=== PATIENT | male | born 1990 | race Hispanic/Latino ===

== ENCOUNTER 2020-01-20 | Emergency (ER) | payer SELFPAY ==
[~2020-01-20] MED LIST: BACTRIM DS1 TAB OR; KEFLEX500 MG OR; NAPROXEN500 MG OR; NO CURRENT MEDS; TRAMADOL HCL50 MG OR; TYLENOL500 MG OR
[2020-01-20] MEDS ORDERED: AMOXICILLIN875 MG PO (20:57)
== END 2020-01-20 21:35 | disposition home or self-care (01) | DRG 864 ==
DX: R50.9 Fever, unspecified (principal); J02.9 Acute pharyngitis, unspecified
CPT/HCPCS: J0561

== ENCOUNTER 2020-08-22 20:40 | Emergency (ER) | payer SELFPAY ==
[~2020-08-22] VITALS: Ht 180.3 cm; Wt 95.4 kg
[~2020-08-22 20:40] MED LIST changes: +AMOXICILLIN875 MG PO
[2020-08-22] MEDS ORDERED: AMOX/K CLAV875 M1 PO (21:27)
[2020-08-22 22:45] VITALS: BP 146/77
== END 2020-08-22 22:45 | disposition home or self-care (01) | DRG 153 ==
LOC: ED 20:40
DX: J03.90 Acute tonsillitis, unspecified (principal)

== ENCOUNTER 2020-12-25 19:39 | Emergency (ER) | payer OTHER ==
[~2020-12-25] VITALS: Ht 180.3 cm; Wt 116.8 kg
[~2020-12-25 19:39] MED LIST changes: +AMOX/K CLAV875 M1 PO
[2020-12-25 20:16] LABS: HEMATOCRIT 43.8 % (39.0-50.0); HEMOGLOBIN 14.7 g/dl (14.0-18.0); IMMATURE GRANULOCYTES 0.4 % (0.0-5.0); MEAN CELL VOLUME 88.7 fL CALC (80.0-100.0); MEAN CORPUSCULAR HGB 29.8 pG CALC (26.0-32.0); MEAN CORPUSCULAR HGB CONC 33.6 g/dL CAL (32.0-36.0); NEUT# 6.23 thou/uL (1.82-7.42); RED BLOOD COUNT 4.94 mill/uL (4.70-6.10)
[2020-12-25 20:37] LABS: ALBUMIN 4.6 g/dL (3.2-5.0); ANION GAP 14 (6-22 (CALC)); BILIRUBIN, TOTAL 0.5 mg/dL (0.0-1.4); BUN 15 mg/dL (9-20); BUN/CREATININE RATIO 15 (12-20 (CALC)); CARBON DIOXIDE 28 mmol/l (22-30); CHLORIDE 101 mmol/l (95-108); GFR > 60 ML/MIN (>=60 (CALC)); GFR FOR AFR.AMER. > 60 ML/MIN (>=60 (CALC)); POTASSIUM 3.7 mmol/l (3.5-5.1); SGOT/AST 44 u/l (17-59); SODIUM 140 mmol/l (137-146); TOTAL PROTEIN 7.7 g/dL (6.3-8.2)
[2020-12-25 20:39] LABS: ALKALINE PHOSPHATASE 97 u/l (38-126)
[2020-12-25] MEDS ORDERED: LOMOTIL2.5 MG PO (20:57)
[2020-12-25] MEDS ORDERED: AMOXICILLIN500 MG PO (20:57)
[2020-12-25 20:59] VITALS: BP 120/71
== END 2020-12-25 21:05 | disposition home or self-care (01) ==
LOC: ED 19:39
PROVIDERS: Emergency Medicine
DX: R19.7 Diarrhea, unspecified (principal); J03.90 Acute tonsillitis, unspecified; Z91.19 Patient's noncompliance with other medical treatment and regimen

== ENCOUNTER 2021-11-28 20:48 | Emergency (ER) | payer MEDICAID ==
[~2021-11-28] VITALS: Ht 180.3 cm; Wt 112.0 kg
[~2021-11-28 20:48] MED LIST changes: +AMOXICILLIN500 MG PO; +LOMOTIL2.5 MG PO
[2021-11-28 23:33] VITALS: BP 128/70
== END 2021-11-28 23:33 | disposition home or self-care (01) ==
LOC: ED 20:48
DX: J06.9 Acute upper respiratory infection, unspecified (principal); Z20.822 Contact with and (suspected) exposure to COVID-19

== ENCOUNTER 2023-04-27 22:12 | Emergency (ER) | payer MEDICAID | END 2023-04-27 22:57 | disposition left against medical advice (07) | DRG 951 | LOC: ED 22:12 → LWOBS 22:36 | DX: Z53.21 Procedure and treatment not carried out due to patient leaving prior to being seen by health care provider (principal) ==

== ENCOUNTER 2023-06-17 21:37 | Emergency (ER) | payer MEDICAID ==
[~2023-06-17] VITALS: Ht 180.3 cm; Wt 127.0 kg
[2023-06-17 21:42] VITALS: BP 138/91
[2023-06-17] MEDS ORDERED: STERAPRED DS10 MG PO (21:52)
== END 2023-06-17 22:05 | disposition home or self-care (01) ==
LOC: ED 21:37
DX: L25.9 Unspecified contact dermatitis, unspecified cause (principal)